=== PATIENT | female | born 1945 | race Two or more races ===

== ENCOUNTER 2018-01-26 11:50 | Outpatient (CLI) | payer OTHER | END 2018-01-26 11:55 | disposition home or self-care (01) | LOC: NUCLEAR 11:50 | DX: I27.0 Primary pulmonary hypertension (principal); R06.02 Shortness of breath ==

== ENCOUNTER 2021-08-24 04:48 | Emergency (ER) | payer OTHER ==
[~2021-08-24] VITALS: Ht 160 cm; Wt 84.4 kg
[2021-08-24] MEDS ORDERED: WELLBUTRIN SR100 MG PO (05:19)
[2021-08-24] MEDS ORDERED: SYNTHROID100 MCG PO (05:19)
== END 2021-08-24 22:00 | disposition home or self-care (01) ==
LOC: ER 04:48
DX: R13.19 Other dysphagia (principal); M54.2 Cervicalgia; E87.6 Hypokalemia